=== PATIENT | female | born 1990 | race Caucasian/White ===

== ENCOUNTER 2017-01-21 17:12 | Inpatient (IN) | payer BC ==
[2017-01-21] MEDS ORDERED: FENTANYL 100MCG/2ML SOL IV PRN (19:00)
[2017-01-21] MEDS ORDERED: LACTATED RINGERS 1,000 ML IV PRN (19:00)
[2017-01-21] MEDS ORDERED: CARBOPROST 250 MCG/ML SOL IM PRN (19:00)
[2017-01-21] MEDS ORDERED: METHYLERGONOVINE MALEATE 0.2 MG/ML SOL IM PRN (19:00)
[2017-01-21] MEDS ORDERED: OXYTOCIN 10000 MU/ML SOL IM PRN (19:00)
[2017-01-21] MEDS ORDERED: MEPIVACAINE HCL 1% MPF 30 ML SOL INFIL PRN (19:00)
[2017-01-21] MEDS ORDERED: SODIUM CHLORIDE 0.9% FLUSH 10 ML SOL IV PRN (19:00)
[2017-01-21] MEDS ORDERED: TERBUTALINE SULFATE 1 MG/ML SOL SC PRN (22:00)
[2017-01-21] MEDS ORDERED: LACTATED RINGERS 1,000 ML IV SCH (22:00)
[2017-01-21] MEDS ORDERED: OXYTOCIN 10000 MU/ML 20,000 MU in LACTATED RINGERS 1,000 ML IV SCH (22:00)
[2017-01-21] MEDS: SODIUM CHLORIDE 0.9% FLUSH 10 ML SOL IV SCH (22:16)
[2017-01-22 02:20] LABS: BASOPHILS % (AUTO) 0 % (0-3); EOSINOPHILS % (AUTO) 0 % (0-9); HEMATOCRIT 36 % (35-47); MEAN CORPUSCULAR HGB CONC 33.2 gm/dl (32.0-36.0); MEAN CORPUSCULAR VOLUME 87 fL (81-99); MONOCYTES % (AUTO) 6.4 % (0-12); NEUTROPHILS % (AUTO) 74.3 % (37-80)
[2017-01-22] MEDS ORDERED: EPHEDRINE SULFATE 50 MG/ML SOL IV PRN (02:25)
[2017-01-22] MEDS ORDERED: NALBUPHINE HCL 20 MG/ML SOL IV PRN (02:25)
[2017-01-22] MEDS ORDERED: DIPHENHYDRAMINE 50 MG/ML SOL IV PRN (02:25)
[2017-01-22] MEDS ORDERED: NALOXONE HYDROCHLORIDE 0.4 MG/ML SOL IV PRN (02:25)
[2017-01-22] MEDS: LACTATED RINGERS 1,000 ML IV SCH ×4 (02:30→12:25)
[2017-01-22] MEDS ORDERED: LIDOCAINE HCL 2% MPF SOL ONE (03:01)
[2017-01-22] MEDS ORDERED: ROPIVACAINE HYDROCHLORIDE 5 MG/ML SOL ONE ×2 (03:47→03:50)
[2017-01-22] MEDS ORDERED: FENTANYL 250 MCG/ 5ML SOL ONE (03:48)
[2017-01-22] MEDS: SODIUM CHLORIDE 0.9% FLUSH 10 ML SOL IV SCH ×3 (06:48→21:43)
[2017-01-22] MEDS ORDERED: FLEET ENEMA PR PRN (07:50)
[2017-01-22] MEDS ORDERED: BISACODYL 10 MG SUP PR PRN (07:50)
[2017-01-22] MEDS ORDERED: BENZOCAINE/MENTHOL 1 SPR TOP PRN (07:50)
[2017-01-22] MEDS ORDERED: APAP/HYDROCODONE 325/5 TAB PO PRN (07:50)
[2017-01-22] MEDS ORDERED: METHYLERGONOVINE MALEATE 0.2 MG TAB PO PRN (07:50)
[2017-01-22] MEDS ORDERED: TEMAZEPAM 15MG 15 MG CAP PO PRN (07:50)
[2017-01-22] MEDS: DOCUSATE SODIUM 100 MG SGL PO SCH ×2 (09:51→20:20)
[2017-01-22] MEDS: IBUPROFEN 600 MG TAB PO PRN ×2 (09:54→20:20)
[2017-01-22] MEDS: WITCH HAZEL 1 EA PAD TOP PRN ×3 (09:55→19:02)
[2017-01-22] MEDS ORDERED: SALINE PRN (13:35)
[2017-01-23] MEDS: SODIUM CHLORIDE 0.9% FLUSH 10 ML SOL IV SCH ×2 (06:10→16:08)
[2017-01-23] MEDS: IBUPROFEN 600 MG TAB PO PRN ×2 (09:15→20:29)
[2017-01-23] MEDS: MULTIVITAMIN2 1 EA TAB PO SCH (09:15)
[2017-01-23] MEDS: DOCUSATE SODIUM 100 MG SGL PO SCH ×2 (09:15→20:29)
[2017-01-23] MEDS: FOLIC ACID 1 MG TAB PO SCH (09:15)
[2017-01-23] MEDS: WITCH HAZEL 1 EA PAD TOP PRN ×3 (09:15→23:09)
[2017-01-24 04:04] VITALS: O2SAT 100
[2017-01-24] MEDS: IBUPROFEN 600 MG TAB PO PRN (06:41)
[2017-01-24 08:31] VITALS: BP 119/78; PULSE 84; RESP 16; TEMP 97.8
[2017-01-24] MEDS: WITCH HAZEL 1 EA PAD TOP PRN (08:35)
[2017-01-24] MEDS: DOCUSATE SODIUM 100 MG SGL PO SCH (08:36)
[2017-01-24] MEDS: MULTIVITAMIN2 1 EA TAB PO SCH (08:36)
[2017-01-24] MEDS: FOLIC ACID 1 MG TAB PO SCH (08:36)
== END 2017-01-24 11:00 | disposition home or self-care (01) | DRG 560 ==
LOC: OBSVTOIN 17:20 → INTOOBSV 17:20 → UNDOADMOB 17:20 → OB 17:20 → OBSVTOIN 01-22 17:00
PROVIDERS: ADMIT Family Medicine; ATTEND Family Medicine
PROC: 10E0XZZ Delivery of Products of Conception, External Approach (ICD-10-PCS; principal; 2017-01-22)
PROC: 0KQM0ZZ Repair Perineum Muscle, Open Approach (ICD-10-PCS; 2017-01-22)
DX: O48.0 Post-term pregnancy (principal); O76 Abnormality in fetal heart rate and rhythm complicating labor and delivery; Z3A.40 40 weeks gestation of pregnancy; O70.1 Second degree perineal laceration during delivery; Z37.0 Single live birth
CPT/HCPCS: 36415; 59025; 85018; 85025; J0670; J2590; J2795; J3010; J3105